=== PATIENT | female | born 1950 | race Caucasian/White ===

== ENCOUNTER 2017-02-27 23:40 | Observation (INO) | payer MEDICARE ==
[2017-02-27] MEDS ORDERED: Aspirin Low Dose CHEW TAB* 81 MG PO ONE (23:44)
[2017-02-28] MEDS ORDERED: Morphine INJ* 4 MG/ML 1 ML CARPUJECT IV ONE ×3 (00:02→02:31)
[2017-02-28] MEDS ORDERED: Ondansetron INJ* 2 MG/ML VIAL IV ONE (00:02)
[2017-02-28 00:25] LABS: Calcium 9.4 mg/dL (8.6-10.3); EGFR African American 121.2 (>60); EGFR Non-African American 94.3 (>60); Potassium 3.6 mmol/L (3.5-5.0); Total Bilirubin 0.7 mg/dL (0.2-1.0)
[2017-02-28 00:33] LABS: Hematocrit 34 % (35-47); Hemoglobin 10.9 g/dl (12.0-16.0); Mean Corpuscular HGB Conc 32 g/dl (31-36); Mean Corpuscular Hemoglobin 28 pg (27-31); Mean Corpuscular Volume 86 fL (80-97); Mean Platelet Volume 11 um3 (7.4-10.4); Red Blood Count 3.97 10^6/ul (4.0-5.4); Red Cell Distribution Width 20 % (10.5-15); White Blood Count 5.7 10^3/ul (3.5-10.8)
[2017-02-28] MEDS ORDERED: Iodixanol* (CONTRAST) 320 MG/ML 100 ML SDV IV ONE (01:05)
[2017-02-28] MEDS ORDERED: Iodixanol 320 (CONTRAST) 100 ML SDV IV ONE (01:33)
[2017-02-28] MEDS ORDERED: NS 0.9% 1000 ML* 1,000 ML IV ONE (02:32)
[2017-02-28] MEDS ORDERED: Enoxaparin(*) 60 MG/0.6 ML SYR SUBCUT ONE (03:36)
[2017-02-28] MEDS ORDERED: Morphine INJ* 2 MG/ML 1 ML SYRINGE (TWO MG - NEW SYRINGE VERSION) IV PRN (04:04)
[2017-02-28] MEDS ORDERED: Senna TAB PO PRN (04:04)
[2017-02-28] MEDS ORDERED: Al Hydrox/Mg Hydrox/Simet LIQ* 30 ML UDC PO PRN (04:04)
[2017-02-28] MEDS ORDERED: Docusate CAP* 100 MG PO PRN (04:04)
[2017-02-28] MEDS ORDERED: Ondansetron INJ* 2 MG/ML VIAL IV PRN (04:04)
[2017-02-28] MEDS ORDERED: oxyCODONE/Acetamin 5/325 MG* TAB PO PRN (04:04)
[2017-02-28] MEDS ORDERED: Acetaminophen TAB* 325 MG PO PRN (04:04)
[2017-02-28] MEDS ORDERED: Polyethylene Glycol 3350* 17 GM PACKET PO PRN (04:09)
[2017-02-28] MEDS ORDERED: Levothyroxine TAB* 75 MCG TAB PO SCH (06:00)
[2017-02-28] MEDS ORDERED: Omeprazole CAP* 20 MG PO SCH (06:00)
[2017-02-28] MEDS ORDERED: ValACYclovir (*) 500 MG TAB PO SCH (09:00)
[2017-02-28] MEDS ORDERED: LENALIDOMIDE 25 MG PO SCH (09:00)
[2017-02-28] MEDS ORDERED: Aspirin EC Low Dose* 81 MG TAB.EC PO SCH (09:00)
--- NOTE | 2017-02-28 09:29 | RAD ---
INDICATION: Shortness of breath, pleuritic chest pain. History of multiple myeloma. COMPARISON: February 27, 2017 chest radiograph and September 24, [address] TECHNIQUE: Multidetector CT images were obtained from the lung apices to the upper abdomen with 64 mL Visipaque 320 IV contrast. Pulmonary angiogram protocol. Multiplanar reformation including with maximum intensity projection. REPORT: Low lung volumes with partial atelectasis of the bilateral lower lobes. Negative for suspicious focal pulmonary lesion. Negative for pleural effusion or pneumothorax. Negative for thoracic lymphadenopathy. Upper normal heart size. Negative for pericardial effusion. Normal diameter thoracic aorta. Assessment for acute pulmonary embolism is limited due to suboptimal opacification of the pulmonary arteries. No compelling hypodense filling defects are identified within the main to the segmental and where visible the subsegmental pulmonary arteries to confirm presence of acute pulmonary embolus. At the apical posterior segment of the LEFT upper lobe and peripheral anterior segment of the LEFT upper lobe there are short segments of high density intravascular material at the subsegmental pulmonary arteries consistent with cement embolus secondary to extensive vertebroplasty/kyphoplasty procedures. No suspicious finding at the limited visualized upper abdomen. Multilevel osteoporotic compression fractures of the thoracic spine with polymethyl methacrylate cement from the T5 level through the T12 level. Bone density appears increased throughout. No acute fracture or suspicious focal osseous lesion evident. IMPRESSION: 1. Limited assessment for acute pulmonary embolism due to suboptimal opacification of the pulmonary arteries without compelling evidence for a central pulmonary embolism. 2. Low burden of polymethyl methacrylate pulmonary emboli from prior vertebroplasty/kyphoplasty. 3. Low lung volumes with bilateral lower lobe partial atelectasis.
--- NOTE | 2017-02-28 11:04 | RAD ---
INDICATION: February 28, [address] pulmonary angiogram. Shortness of breath, pleuritic chest pain, history of multiple myeloma. COMPARISON: February 28, 2017 TECHNIQUE: Masters scale, color Doppler, and spectral analysis of the deep veins of the BILATERAL lower extremities. Vessel compression, phasicity, and augmentation assessed. REPORT: The RIGHT common femoral, great saphenous, profunda femoral, femoral, popliteal, peroneal, and posterior tibial veins are patent. The LEFT common femoral, great saphenous, profunda femoral, femoral, popliteal, peroneal, and posterior tibial veins are patent. IMPRESSION: No evidence for RIGHT or LEFT lower extremity DVT.
--- NOTE | 2017-02-28 11:21 | HP ---
CC: Victorino Marin MD; Nate Garcia MD. HISTORY AND PHYSICAL: DATE OF ADMISSION: 02/28/17. TIME OF EVALUATION: 0400. PRIMARY CARE PHYSICIAN: Victorino Marin MD. CHIEF COMPLAINT: Chest pain. HISTORY OF PRESENT ILLNESS: This is a 66-year-old female with a past medical history of multiple myeloma, who recently underwent kyphoplasty at [facility] on the for a thoracic compression fracture, who presents to the emergency room with acute onset of left-sided chest pain that began around 10 p.m., at rest. She said earlier in the evening she was having neck and shoulder pain and then she had this acute onset of chest pain. She initially thought it was gas and tired to walk it off; no improvement. She then took a baby aspirin, was having difficulty with taking deep breaths, and came to the emergency room for further evaluation. She denies any fevers. She does have some chills. No nausea, no diaphoresis, no cough or congestion. No abdominal pain. No diarrhea. The patient does state that she was having some cramping in her right lower calf recently. Otherwise, remainder of review of systems are negative. In the emergency room, the patient had labs and imaging, was referred to the hospitalist service for further evaluation. PAST MEDICAL HISTORY: 1. History of multiple myeloma, on chemotherapy followed by Dr. Garcia. 2. History of thoracic spine compression fracture, status post kyphoplasty of the thoracic vertebrae on 02/24/17. 3. Hypothyroidism. 4. Chronic pain. 5. Seasonal allergies. 6. Constipation. MEDICATIONS: 1. Revlimid 25 mg daily 2 weeks off, 1 week on, currently is on. 2. Velcade injection 1.9 mL 2 times a week for 2 weeks on and 1 week off. 3. Zometa IV 1 time per month. 4. Valacyclovir 500 mg daily. 5. Zofran 4 mg as needed for nausea. 6. Dexamethasone 4 mg 1 time a week while on chemo. 7. Aspirin 81 mg daily. 8. Levothyroxine 75 mcg daily. 9. Hydrocodone/acetaminophen 5/325 mg as directed as needed for pain. 10. Omeprazole 20 mg daily. 11. Multivitamins daily. 12. Vitamin D3 6000 units daily. 13. Vitamin C 1500 mg daily. 14. Magnesium 250 mg daily. 15. Folic acid 400 mcg daily. 16. Lutein 20 mg daily. 17. Adriane 60 mg daily. 18. Culturelle probiotic 1 to 2 tablets daily. 19. Senokot as needed. 20. MiraLAX as needed. ALLERGIES: CIPROFLOXACIN, CONTRAST, LEVAQUIN, MEPERIDINE, PROCHLORPERAZINE, ANESTHESIA. FAMILY HISTORY: No history of multiple myeloma. She does state two of her brothers have clotting disorders, unsure with what their disorder is. SOCIAL HISTORY: The patient lives at home with her , Terrence, who is her healthcare proxy. No history of tobacco, alcohol or illicit drug use. She is a retired electronics recycler. REVIEW OF SYSTEMS: A 14-point review of systems is reviewed, otherwise as mentioned in the HPI, remaining is negative. PHYSICAL EXAMINATION GENERAL: No acute distress, resting comfortably. VITAL SIGNS: Temp 98, pulse rate 67, respiratory rate 16, oxygen saturation 98 % on 2 L, blood pressure 115/64. HEENT: Head normocephalic. Pupils are equal and reactive. Anicteric. Oropharynx: Mucous membranes moist. No erythema or exudate. NECK: Supple. No lymphadenopathy. RESPIRATORY: Faint rhonchi at the mid and lower bases bilaterally. No increased work of breathing. CARDIAC: Regular rate and rhythm. Soft systolic murmur heard throughout. ABDOMEN: Soft, nontender, nondistended. EXTREMITIES: No clubbing, cyanosis, or edema; +2 DPs. NEUROLOGIC: Alert and oriented x3. No focal neurologic deficits. DERMATOLOGIC: The patient wears multiple bandages over her back that are clean , dry, and intact. DIAGNOSTIC STUDIES/LAB DATA: White count 5.7, hemoglobin 10.9, hematocrit 34, platelets 161. D-dimer is 580. Sodium 136, potassium 3.6, chloride 102, bicarb 26, BUN 12, creatinine 0.68. Troponin 0 x2. Radiographic Data: CT shows atelectatic changes, possible early infiltrates at the lung base, multiple thoracic compression fractures with vertebroplasty. There is no pulmonary embolus of the right, left, and main pulmonary arteries, as well as her major central branch points essentially nondiagnostic for PE distal to these vessels because of under opacification. EKG shows normal sinus rhythm. ASSESSMENT AND PLAN: This is a 66-year-old female with a past medical history of multiple myeloma on chemotherapy, recently underwent kyphoplasty for compression fractures, who presents to the emergency room with acute onset of left-sided chest pain with pleuritic pain. 1. Chest pain and pleuritic pain. Assessment: The patient with moderately elevated D-dimer most likely secondary to her malignancy. Unfortunately, her CTA was nondiagnostic for a PE. Her vitals do not support a PE, though she has pleuritic pain, left-sided chest pain and she was having right calf tenderness as well and some subtle lower extremity swelling in the right calf. I spoke with her regarding admitting her and treating her with Lovenox for presumed PE and consider repeating a CTA in the morning under oncology service and the recommendation and also order a Doppler of her lower extremities bilaterally and pain control. The patient is agreeable to this plan. We will repeat a troponin in the morning as well. 2. Chronic medical problems. Resume her home medications as prescribed. 3. FEN: Place patient on a regular diet. 3. DVT prophylaxis. The patient would be on Lovenox. Her score risk is moderate. 4. Code status: Full code. PATIENT TIME: Greater than 60 minutes spent doing the history and physical, more than half time spent in direct patient contact. [id number]/[facility] #: [id number] MARII
[2017-02-28 12:29] VITALS: BP 101/52
--- NOTE | 2017-02-28 15:03 | RAD ---
Indication: Chest pain. Back surgery on Wednesday this week. Comparison: CT pulmonary angiogram of the same date. Technique: Upright AP 1205 hours. Report: Corresponding with CT finding there are both small linear and branching opacities at the LEFT midlung zone corresponding with polymethyl methacrylate emboli on CT. Bilateral basilar atelectasis greatest at the LEFT lower lobe corresponding with CT finding. Negative for pleural effusion or pneumothorax. The heart, pulmonary vasculature, and mediastinal contours are unremarkable. Polymethyl methylmethacrylate cement at multiple thoracic vertebral body levels. IMPRESSION: 1. Small burden of polymethyl methylmethacrylate pulmonary emboli which may be acute or subacute given surgery on the back in the past week. 2. LEFT greater than RIGHT basilar atelectasis. Results discussed with Dr. Del Valle 02/28/2017 2:59 PM EDT
[2017-02-28] MEDS ORDERED: Enoxaparin(*) 60 MG/0.6 ML SYR SUBCUT SCH (16:00)
--- NOTE | 2017-03-01 05:03 | DS ---
CC: Dr. Victorino Marin; Dr. Nate Garcia * DISCHARGE SUMMARY: DATE OF ADMISSION: 02/28/17 DATE OF DISCHARGE: 02/28/17 PRIMARY DIAGNOSIS: Pulmonary embolus. SECONDARY DIAGNOSES: 1. Multiple myeloma. 2. Recent kyphoplasty. 3. Hypothyroidism. 4. Chronic pain syndrome. IMAGING ON THIS ADMISSION: CT angio showed: 1. Limited assessment for acute pulmonary embolism due to suboptimal opacification of the pulmonary arteries without compelling evidence for central pulmonary embolism. 2. Low burden of poly methyl methacrylate pulmonary emboli from prior vertebroplasty/kyphoplasty. 3. Low lung volumes with bilateral lower lobe partial atelectasis. Lower extremity Doppler's were negative for DVT bilaterally. HOSPITAL COURSE BY PROBLEM: 1. Chest pain. Her EKG had no ischemic changes and her troponins were negative x3. Given her history of multiple myeloma and current treatment with Revlimid, a CT angio was performed to evaluate for pulmonary embolus. Unfortunately, the CT angio could not rule out a pulmonary embolism despite having no evidence for a central PE. It did, however, show some poly methyl methacrylate pulmonary emboli from her vertebroplasty/kyphoplasty. It is possible that the emboli of poly methyl methacrylate was causing the pain as she had had a recent kyphoplasty 5 days ago; however, it is unclear whether such sharp severe pain would occur 5 days after that procedure if related to embolic phenomenon from the procedure. Since a thromboembolism could not be ruled out with the CT angio and given her risk factors for thromboembolism, she was started on therapeutic Lovenox. This case was discussed with Dr. Garcia who will see Ms. Hughes tomorrow for chemotherapy and evaluate her ongoing need for therapeutic anticoagulation. She had no oxygen requirement and no hypotension. I discussed the equivocal nature of her radiographic findings with Ms. Hughes and she was agreeable to continuing Lovenox for now. No other etiology of her severe, sudden, sharp left-sided chest pain was found. A bone survey done in October was negative for any rib involvement. So without an ulterior etiology of her pain, we decided it was prudent to treat as a thromboembolism. 2. Multiple myeloma. She is scheduled for chemotherapy tomorrow morning with Dr. Garcia. Her current regimen is Revlimid, Velcade, and Decadron. 3. Chronic pain syndrome. She takes hydrocodone at home for her chest pain this week. I instructed her to take 2 pills q.6 p.r.n. pain. [id number]/[facility] #: [id number] MARII
--- NOTE | 2017-03-12 15:25 | ED ---
Prince Medrano Thomas, scribed for Clarence Barrett MD on 02/28/17 at 0038 . HPI Chest Pain - HPI Summary HPI Summary: The pt is a 66 y/o F presenting to the ED c/o CP that began suddenly today at 22 :00. The pain is aggravated by deep breaths and is alleviated by nothing. The patient has treated the pain with ASA 81 at 22:00 and omeprazole MIXING TECHNICIAN. She had back surgery three days ago. She got home the same day. Pt additionally c/o L shoulder pain and calf pain (intermittent). Pt denies cough, fever, arm pain, jaw pain, and back pain. She has multiple myeloma that has metastasized to her back. PMHx: multiple myeloma, compression fractures. PSHx: back surgery (three days ago). SHx: no smoking, no alcohol use, no illicit drug use. FHx: CHF, CA. She sees Dr. Garcia for her cancer treatments. - History of Current Complaint Chief Complaint: EDChestPainROMI Time Seen by Provider: 02/27/17 23:50 Hx Obtained From: Patient, Family/Pie Baker - present Onset/Duration: Started Hours Ago - onset 22:00, Still Present Timing: Constant Current Severity: Severe Pain Intensity: 8 Pain Scale Used: 0-10 Numeric Aggravating Factor(s): Deep Breaths Alleviating Factor(s): Nothing Associated Signs and Symptoms: Positive: Chest Pain, Calf Pain/Swelling, Other: - POS: L shoulder pain; NEG: arm pain, jaw pain, back pain. Negative: Fever, Cough - Allergy/Home Medications Allergies/Adverse Reactions: Allergies Allergy/AdvReac Type Severity Reaction Status Date / Time Ciprofloxacin [From Cipro] Allergy Anaphylatic Verified 02/28/17 00:01 Shock Iodoquinol [From Floraquin] Allergy Anaphylatic Verified 02/28/17 00:01 Shock Levofloxacin Allergy Anaphylatic Verified 02/28/17 00:01 Shock Meperidine [From Demerol HCl] Allergy Palpitation Verified 07/06/16 11:26 s Prochlorperazine Allergy Dizziness Verified 02/28/17 00:01 [From Compazine] ANESETHSIA AdvReac Unknown Uncoded 05/22/16 14:26 Reaction Details PMH/Surg Hx/FS Hx/Imm Hx Previously Healthy: No Endocrine/Hematology History: Denies: Hx Diabetes Cardiovascular History: Denies: Hx Hypertension, Hx Pacemaker/ICD History: Denies: Hx Renal Disease Musculoskeletal History: Reports: Other Musculoskeletal History - Hx compression fractures Sensory History: Denies: Hx Hearing Aid Psychiatric History: Denies: Hx Panic Disorder - Cancer History Cancer Type, Location and Year: Multiple myeloma Hx Chemotherapy: No Hx Radiation Therapy: No - Surgical History Surgery Procedure, Year, and Place: 1981 HYSTERECTOMY AND APPENDECTOMY Infectious Disease History: Yes Infectious Disease History: Denies: Traveled Outside the [place] in Last 30 Days - Family History Known Family History: Positive: Cardiac Disease, Other - POS: CA - Social History Alcohol Use: None Substance Use Type: Reports: None Smoking Status (MU): Never Smoked Tobacco Review of Systems Negative: Fever, Chills Negative: Erythema - eyes Negative: Sore Throat Positive: Chest Pain Negative: Shortness Of Breath, Cough Negative: Abdominal Pain, Vomiting, Nausea Negative: hematuria, incontinence Positive: Other - POS: L shoulder pain, calf pain; NEG: arm pain, jaw pain, back pain. Negative: Myalgia, Edema - legs Negative: Rash Neurological: Other - NEG: dizziness All Other Systems Reviewed And Are Negative: Yes Physical Exam - Summary Physical Exam Summary: Constitutional: Well-developed, Well-nourished, Alert. She is in obvious pain. Skin: Warm, Dry HENT: Normocephalic; Atraumatic Eyes: Conjunctiva normal Neck: Musculoskeletal ROM normal neck. (-) JVD, (-) Stridor, (-) Tracheal deviation Cardio: Rhythm regular, rate normal, Heart sounds normal; Intact distal pulses; The pedal pulses are 2+ and symmetric. Radial pulses are 2+ and symmetric. (-) Murmur Pulmonary/Chest wall: She appears uncomfortable with taking a deep breath. Effort normal. She is mildly tachypnic. (-) Respiratory distress, (-) Wheezes, ( -) Rales Abd: She has no palpable tenderness. Soft, (-) Tenderness, (-) Distension, (-) Guarding, (-) Rebound Musculoskeletal: (-) Edema Lymph: (-) Cervical adenopathy Neuro: Alert, Oriented x3 Psych: Mood and affect Normal Triage Information Reviewed: Yes Vital Signs On Initial Exam: Initial Vitals Pulse Resp Pulse Ox 87 20 98 02/27/17 23:57 02/27/17 23:57 02/27/17 23:57 Vital Signs Reviewed: Yes - Kath Coma Scale Coma Scale Total: 15 Diagnostics - Vital Signs Vital Signs Temp Pulse Resp BP Pulse Ox 02/28/17 00:30 67 23 115/64 98 02/28/17 00:09 20 02/28/17 00:08 98 F 74 16 139/73 99 02/28/17 00:00 84 20 139/73 95 02/27/17 23:57 87 20 98 - Laboratory Lab Results: Lab Results 02/28/17 02/28/17 02/28/17 Range/Units 00:01 00:01 00:01 WBC 5.7 (3.5-10.8) 10^3/ul RBC 3.97 L (4.0-5.4) 10^6/ul Hgb 10.9 L (12.0-16.0) g/dl Hct 34 L (35-47) % MCV 86 (80-97) fL MCH 28 (27-31) pg MCHC 32 (31-36) g/dl RDW 20 H (10.5-15) % Plt Count 161 (150-450) 10^3/ul MPV 11 H (7.4-10.4) um3 Neut % (Auto) 80.8 (38-83) % Lymph % (Auto) 13.7 L (25-47) % Branch % (Auto) 4.9 (1-9) % Eos % (Auto) 0.5 (0-6) % Baso % (Auto) 0.1 (0-2) % Absolute Neuts (auto) 4.6 (1.5-7.7) 10^3/ul Absolute Lymphs (auto) 0.8 L (1.0-4.8) 10^3/ul Absolute Monos (auto) 0.3 (0-0.8) 10^3/ul Absolute Eos (auto) 0 (0-0.6) 10^3/ul Absolute Basos (auto) 0 (0-0.2) 10^3/ul Absolute Nucleated RBC 0 10^3/ul Nucleated RBC % 0.1 Sodium 136 (133-145) mmol/L Potassium 3.6 (3.5-5.0) mmol/L Chloride 102 (101-111) mmol/L Carbon Dioxide 26 (22-32) mmol/L Anion Gap 8 (2-11) mmol/L BUN 12 (6-24) mg/dL Creatinine 0.63 (0.51-0.95) mg/dL Est GFR ( Amer) 121.2 (>60) Est GFR (Non-Af Amer) 94.3 (>60) BUN/Creatinine Ratio 19.0 (8-20) Glucose 94 (70-100) mg/dL Lactic Acid 0.8 (0.5-2.0) mmol/L Calcium 9.4 (8.6-10.3) mg/dL Total Bilirubin 0.70 (0.2-1.0) mg/dL AST 22 (13-39) U/L ALT 23 (7-52) U/L Alkaline Phosphatase 53 (34-104) U/L Troponin I 0.00 (<0.04) ng/mL Total Protein 7.0 (6.4-8.9) g/dL Albumin 4.0 (3.2-5.2) g/dL Globulin 3.0 (2-4) g/dL Albumin/Globulin Ratio 1.3 (1-3) Result Diagrams: 02/28/17 00:01 02/28/17 00:01 Lab Statement: Any lab studies that have been ordered have been reviewed, and results considered in the medical decision making process. - Radiology CXR Xray Interpretation: No Acute Changes - No acute disease. Radiology Interpretation Completed By: ED Physician - CT CTA Chest CT Interpretation: Positive (See Comments) - CTA Chest shows Atelectatic changes , possibly early infiltrates at the lung bases. Multiple thoracic compression fractures with vertebroplasty. ED Physician has reviewed this report and agrees. CT Interpretation Completed By: Radiologist Re-Evaluation - Re-Evaluation First Eval Re-Evaluation Time: 00:26 Change: Improved Comment: The patients symptoms improved by 00:26. Second Eval Re-Evaluation Time: 03:44 Change: Improved Comment: The patient's pain is under control with morhpine Chest Pain Course/Dx - Course Assessment/Plan: The pt is a 66 y/o F presenting to the ED c/o CP that began suddenly today at 22:00. The pain is aggravated by deep breaths and is alleviated by nothing. The patient has treated the pain with ASA 81 at 22:00 and omeprazole MIXING TECHNICIAN. She had back surgery three days ago. She got home the same day. Pt additionally c/o L shoulder pain and calf pain (intermittent). Pt denies cough, fever, arm pain, jaw pain, and back pain. She has multiple myeloma that has metastasized to her back. PMHx: multiple myeloma, compression fractures. PSHx: back surgery (three days ago), appendectomy, hysterectomy. SHx : no smoking, no alcohol use, no illicit drug use. FHx: CHF, CA. She sees Dr. Garcia for her cancer treatments. In the ED course the patient was given ASA, Lovenox, Morphine, IV fluids, and Zofran. The patients symptoms improved by 00: 26. At 03:44 the patients pain is under control with morphine. CXR no acute disease. CTA Chest shows Atelectatic changes, possibly early infiltrates at the lung bases. Multiple thoracic compression fractures with vertebroplasty. ED Physician has reviewed this report and agrees. I discussed the case with Dr. Campbell, hospitalist. She recommends Lovenox. We will admit for IV pain control. The patient is diagnosed with pulmonary embolism. We have a high suspicion for this given her CA history and her recent surgery. - Diagnoses Provider Diagnoses: Pulmonary embolism - Provider Notifications Discussed Care Of Patient With: Jany Campbell Time Discussed With Above Provider: 04:04 Instructed by Provider To: Other - I discussed the case with Dr. Campbell, hospitalist. She recommends Lovenox. We will admit for IV pain control. Discharge - Discharge Plan Condition: Stable Disposition: ADMITTED TO [facility] documentation as recorded by the Prince coats Thomas accurately reflects the service I personally performed and the decisions made by me, Clarence Barrett MD.
== END 2017-02-28 15:40 | disposition home or self-care (01) ==
LOC: ED 23:40 → MEDTELE 02-28 04:04
PROVIDERS: ADMIT Pediatrics; ATTEND Internal Medicine
DX: I26.99 Other pulmonary embolism without acute cor pulmonale (principal); C90.00 Multiple myeloma not having achieved remission; E03.9 Hypothyroidism, unspecified; G89.4 Chronic pain syndrome; Z79.82 Long term (current) use of aspirin; Z79.899 Other long term (current) drug therapy; Z88.1 Allergy status to other antibiotic agents; J98.11 Atelectasis
CPT/HCPCS: 36415; 71010; 71275; 80053; 83605; 84484; 85025; 85379; 87040; 93005; 93970; 96374; A9270-GY; G0378; J1650; J2270; J2405; Q9967